=== PATIENT | male | born 1975 | race Caucasian/White ===

== ENCOUNTER 2016-08-28 15:17 | Emergency (ER) | payer OTHER ==
[~2016-08-28] VITALS: Ht 185.4 cm; Wt 93.5 kg
[~2016-08-28 15:17] MED LIST: GABA-112 PO; IBUP-103 PO; LORA-741 PO; OMEP20CA9 PO; PSEU30TA20 PO
[2016-08-28 15:25] VITALS: BP 163/84; PULSE 73; TEMP 36.7; O2SAT 100; Ht 185.4 cm; Wt 93.5 kg
[2016-08-28] MEDS ORDERED: DIPHTHERIA/TETANUS/PERTUSSIS 0.5 ML SYR/VIAL IM. ONE (15:45)
[2016-08-28] MEDS ORDERED: CEPHALEXIN MONOHYDRATE 250 MG CAP PO ONE (15:45)
[2016-08-28] MEDS ORDERED: CEPH500C PO (15:46)
--- NOTE | 2016-08-28 15:48 | EMERGENCY ROOM VISIT NOTE ---
ED Visit Note First contact with patient: 15:38 CHIEF COMPLAINT: Finger laceration HISTORY OF PRESENT ILLNESS: This 5-year-old male patient presents to the emergency department after cutting the right finger first finger about 2 hours ago. The patient was cutting a piece of sheet metal, when he accidentally cut the posterior proximal right thumb. The bleeding has has stopped. Denies weakness or numbness of the finger. The patient has full range of motion of the fingers. The patient rates the pain as sharp and 3/10. The patient denies any other injuries. The patient's tetanus shot is not up to date. The patient cleansed the wound at home and used commercial superglue over top of the wound. REVIEW OF SYSTEMS: A 6 system review of systems was completed with positives and pertinent negatives listed in the HPI. ALLERGIES: No known allergies MEDICATIONS: No chronic medications PMH: Otherwise healthy SOCIAL HISTORY: Lives locally PHYSICAL EXAM: Vital Signs: Reviewed Nurse's notes, vital signs stable. GENERAL : White male, in no acute distress, well developed, well nourished. SKIN: There is a 1.0 cm long laceration on the proximal dorsal aspect of the right first finger. The wound is covered by superglue and does not gape. There is no bleeding. Extension and flexion of the finger is full and strong. Full range of motion of the wrist and other fingers. Capillary refill less than 2 seconds. Normal sensation to light and sharp touch. EMERGENCY DEPARTMENT COURSE: Physical exam and history were performed. Nursing notes and EMR were reviewed. The patient appears to have suffered a small laceration to the back of his right thumb. On exam he has full sensation and range of motion of the digit. His wound appears clean and is well approximated and closed prior to my evaluation. I do not feel that additional suturing would improve the patient's outcome. He does need a tetanus, and this was updated. Additionally I will provide the patient a short course of Keflex to prevent secondary infection. The patient was pleased with this and voiced understanding. He rated his discomfort a 0/10 at the time of departure. Current/Historical Medications Scheduled Cephalexin Monohydrate (Keflex), 500 MG PO TID Omeprazole (Prilosec), 20 MG PO DAILY Scheduled PRN Ibuprofen Tab (Advil), 400 MG PO QID PRN for Pain Allergies Coded Allergies: No Known Allergies (Unverified , 10/12/15) Vital Signs Date Time Temp Pulse Resp B/P Pulse Ox O2 Delivery O2 Flow Rate FiO2 08/28/16 15:25 36.7 73 16 163/84 100 Room Air Departure Information Impression Primary Impression: Laceration of right thumb Dispostion Home / Self-Care Condition GOOD Prescriptions Cephalexin Monohydrate (Keflex) 500 Mg Cap 500 MG PO TID for 7 Days, #21 CAP Prov: Jaylon Lay PA-C 08/28/16 Forms HOME CARE DOCUMENTATION FORM, IMPORTANT VISIT INFORMATION Patient Instructions My [facility] Additional Instructions You were seen and evaluated today on an emergency basis only. This is not a substitute for, or an effort to provide, complete comprehensive medical care. It is not possible to recognize and treat all injuries or illnesses in a single emergency department visit. For this reason it is recommended that you followup with your primary care physician next week with any ongoing or persistent symptoms. Cephalexin(Keflex) 500mg: Take one pill 3 times daily for 7 days to prevent skin infection. All antibiotics can cause diarrhea. If this occurs and you feel worse or it does not resolve in 1-2 days follow up with your doctor or return to the Emergency Department as this could be signs of serious underlying problems. Any medication can cause an allergic reaction, stop the pills immediately and return to the ER for rash, hives, breathing difficulties, or swelling. You are welcome to return to the emergency department anytime with new, worsening, or concerning symptoms.
== END 2016-08-28 16:14 | disposition home or self-care (01) ==
LOC: C.EDB 15:19 → C.EDD 16:14
DX: S61.011A Laceration without foreign body of right thumb without damage to nail, initial encounter (principal); W45.8XXA Other foreign body or object entering through skin, initial encounter

== ENCOUNTER 2017-09-02 06:16 | Emergency (ER) | payer OTHER ==
[~2017-09-02] VITALS: Ht 185.4 cm; Wt 89.4 kg
[~2017-09-02 06:16] MED LIST changes: -GABA-112 PO; -LORA-741 PO; -PSEU30TA20 PO
[2017-09-02 06:18] VITALS: TEMP 36.4; Ht 185.4 cm; Wt 89.4 kg
[2017-09-02] MEDS ORDERED: KETOROLAC TROMETHAMINE 30 MG/ML VIAL IV STA (06:59)
[2017-09-02] MEDS ORDERED: ONDANSETRON INJ 2 MG/ML 2 ML VIAL IV STA (06:59)
[2017-09-02] MEDS ORDERED: SODIUM CHLORIDE 0.9% 1000ML 1,000 ML IV STA (06:59)
[2017-09-02] MEDS ORDERED: MoRPHine SULFATE 10 MG/ML CARP/VIAL IV PRN (07:00)
[2017-09-02 07:21] LABS: BASO % 0.5 %; BASO ABS # 0.04 K/uL (0-0.2); EOS % 0.9 %; EOS ABS # 0.07 K/uL (0-0.5); HEMATOCRIT 42.8 % (42-52); HEMOGLOBIN 15.4 g/dL (14.0-18.0); IG# 0.02 K/uL (0.00-0.02); LYMPH % 24.2 %; LYMPH ABS # 1.83 K/uL (1.2-3.4); MEAN CELL VOLUME 89.5 fL (80-100); MEAN CORPUSCULAR HEMOGLOBIN 32.2 pg (25-34); MEAN PLATELET VOLUME 9.5 fL (7.4-10.4); MONO % 7.1 %; MONO ABS # 0.54 K/uL (0.11-0.59); NEUT ABS # 5.06 K/uL (1.4-6.5); PLATELET COUNT 332 K/uL (130-400); RED CELL DISTRIBUTION WIDTH CV 13.1 % (11.5-14.5); RED CELL DISTRIBUTION WIDTH SD 42.6 fL (36.4-46.3); WHITE BLOOD COUNT 7.56 K/uL (4.8-10.8)
[2017-09-02 07:35] LABS: ALBUMIN 4.2 gm/dl (3.4-5.0); CREATININE 1.17 mg/dl (0.60-1.40); POTASSIUM 4.2 mmol/L (3.5-5.1)
--- NOTE | 2017-09-02 07:36 | DIAGNOSTIC IMAGING REPORT ---
ABD/PELVIS WITHOUT FOR STONE CT DOSE: 799.86 mGy.cm HISTORY: Flank pain left flank pain TECHNIQUE: Multiaxial CT images of the abdomen and pelvis were performed without the use of intravenous and oral contrast according to the standard department stone protocol. A dose lowering technique was utilized adhering to the principles of ALARA. COMPARISON STUDY: 10/12/2015 FINDINGS: 2 mm calculus left ureterovesical junction essentially unchanged from the prior study. Slight fullness left ureter and left renal collecting system compared to the right. No significant hydronephrosis. Liver spleen and pancreas are unremarkable. Bowel pattern is nonobstructive. Normal appendix. No significant free fluid in the pelvic cul-de-sac. IMPRESSION: 1. Minimally obstructing 2 mm calculus left ureterovesical junction. 2. Slight fullness left renal collecting system and left ureter. 3. This study is virtually identical to the prior study of 10/12/2015 The above report was generated using voice recognition software. It may contain grammatical, syntax or spelling errors. Electronically signed by: Ghassan Virk M.D. 09/02/2017 7:35 AM Dictated Date/Time: 09/02/2017 7:28 AM
[2017-09-02 07:37] LABS: TOTAL PROTEIN 7.5 gm/dl (6.4-8.2)
[2017-09-02] MEDS ORDERED: MoRPHine SULFATE 4 MG/ML 1 ML CARP\\VIAL IV STA (07:40)
[2017-09-02] MEDS ORDERED: HYDROmorphone INJ 0.5 MG/0.5 ML SYR IV STA (08:16)
--- NOTE | 2017-09-02 08:26 | EMERGENCY ROOM VISIT NOTE ---
History Report prepared by Nicole: Trupti Buckley Under the Supervision of: Dr. Luis Mendoza M.D. First contact with patient: 06:40 Chief Complaint: KIDNEY STONE Stated Complaint: KIDNEY STONE History of Present Illness The patient is a 42 year old male who presents to the Emergency Room with complaints of persistent left kidney pain starting 0400. He currently rates his discomfort as a 9.5/10 in severity. He states the pain feels like his previous kidney stone. His last kidney stone was 2 years ago and passed on its own. The pain radiates to his left testicle. He is nauseous. Pt denies LOC, headache, fevers, chills, diaphoresis, visual changes, neck pain, chest pain, breathing difficulties, vomiting, abdominal pain, melena, hematochezia, urinary symptoms, numbness, weakness, lymphadenopathy, rash, or other complaints. Source of History: patient Onset: 0400 Position: other (left kidney) Symptom Intensity: 9.5/10 Quality: other (kidney stone) Timing: other (persistent) Associated Symptoms: + nausea Note: Pt reports left testicle pain. Review of Systems See HPI for pertinent positives and negatives. A total of ten systems were reviewed and were otherwise negative. Past Medical & Surgical Medical Problems: (1) Kidney stones Family History Cancer Diabetes mellitus Heart disease Kidney stones Social History Smoking Status: Never Smoker Drug Use: none Marital Status: Housing Status: lives with family Occupation Status: employed Current/Historical Medications Scheduled Omeprazole (Prilosec), 20 MG PO DAILY Tamsulosin Hcl (Flomax), 0.4 MG PO DAILY Scheduled PRN Ibuprofen Tab (Advil), 400 MG PO QID PRN for Pain Oxycodone Ir (Roxicodone Ir), 1-2 TAB PO Q4H PRN for Pain Promethazine Hcl (Phenergan), 25 MG PO Q6H PRN for Nausea Allergies Coded Allergies: No Known Allergies (Unverified , 09/02/17) Physical Exam Vital Signs Date Time Temp Pulse Resp B/P (MAP) Pulse Ox O2 Delivery O2 Flow Rate FiO2 09/02/17 11:38 74 18 114/62 97 Room Air 09/02/17 10:26 50 16 135/74 99 Room Air 09/02/17 09:38 49 17 145/94 99 Room Air 09/02/17 08:00 45 09/02/17 07:41 43 17 138/88 99 Room Air 09/02/17 06:18 36.4 46 18 156/74 99 Room Air Physical Exam GENERAL: Awake, alert, uncomfortable-appearing, in mild distress HENT: Normocephalic, atraumatic. Oropharynx unremarkable. EYES: Normal conjunctiva. Sclera non-icteric. NECK: Supple. No nuchal rigidity. FROM. No masses. RESPIRATORY: Clear to auscultation. No wheezes. CARDIAC: Normal rate. Normal rhythm. No murmurs. No rubs. Extremities warm and well perfused. Pulses equal. No JVD. GI: Soft, non-distended. No tenderness to palpation. No rebound or guarding. No masses. RECTAL: Deferred. MUSCULOSKELETAL: Atraumatic. Chest examination reveals no tenderness. The back is symmetrical on inspection without obvious abnormality. There is left CVA tenderness to palpation. No joint edema. LOWER EXTREMITIES: Calves are equal size bilaterally and non-tender. No edema. No discoloration. NEURO: Normal sensorium. No sensory or motor deficits noted. SKIN: No rash or jaundice noted. Medical Decision & Procedures ER Provider Diagnostic Interpretation: Radiology results as stated below per my review and radiologist interpretation: ABD/PELVIS WITHOUT FOR STONE CT DOSE: 799.86 mGy.cm HISTORY: Flank pain left flank pain TECHNIQUE: Multiaxial CT images of the abdomen and pelvis were performed without the use of intravenous and oral contrast according to the standard department stone protocol. A dose lowering technique was utilized adhering to the principles of ALARA. COMPARISON STUDY: 10/12/2015 FINDINGS: 2 mm calculus left ureterovesical junction essentially unchanged from the prior study. Slight fullness left ureter and left renal collecting system compared to the right. No significant hydronephrosis. Liver spleen and pancreas are unremarkable. Bowel pattern is nonobstructive. Normal appendix. No significant free fluid in the pelvic cul-de-sac. IMPRESSION: 1. Minimally obstructing 2 mm calculus left ureterovesical junction. 2. Slight fullness left renal collecting system and left ureter. 3. This study is virtually identical to the prior study of 10/12/2015 The above report was generated using voice recognition software. It may contain grammatical, syntax or spelling errors. Electronically signed by: Ghassan Virk M.D. 09/02/2017 7:35 AM Dictated Date/Time: 09/02/2017 7:28 AM Laboratory Results 09/02/17 06:50 Red Blood Count 4.78, Mean Corpuscular Volume 89.5, Mean Corpuscular Hemoglobin 32.2, Mean Corpuscular Hemoglobin Concent 36.0, Mean Platelet Volume 9.5, Neutrophils (%) (Auto) 67.0, Lymphocytes (%) (Auto) 24.2, Monocytes (%) (Auto) 7.1, Eosinophils (%) (Auto) 0.9, Basophils (%) (Auto) 0.5, Neutrophils # (Auto) 5.06, Lymphocytes # (Auto) 1.83, Monocytes # (Auto) 0.54, Eosinophils # (Auto) 0.07, Basophils # (Auto) 0.04 09/02/17 06:50 Test 09/02/17 06:39 09/02/17 06:50 Urine Color DK YELLOW Urine Appearance TURBID (CLEAR) Urine pH 5.0 (4.5-7.5) Urine Specific [place] 1.033 (1.000-1.030) Urine Protein TRACE (NEG) Urine Glucose (UA) NEG (NEG) Urine Ketones NEG (NEG) Urine Occult Blood 3+ (NEG) Urine Nitrite NEG (NEG) Urine Bilirubin NEG (NEG) Urine Urobilinogen NEG (NEG) Urine Leukocyte Esterase NEG (NEG) Urine WBC (Auto) 1-5 /hpf (0-5) Urine RBC (Auto) >30 /hpf (0-4) Urine Hyaline Casts (Auto) 1-5 /lpf (0-5) Urine Epithelial Cells (Auto) 5-10 /lpf (0-5) Urine Bacteria (Auto) NEG (NEG) White Blood Count 7.56 K/uL (4.8-10.8) Red Blood Count 4.78 M/uL (4.7-6.1) Hemoglobin 15.4 g/dL (14.0-18.0) Hematocrit 42.8 % (42-52) Mean Corpuscular Volume 89.5 fL (80-100) Mean Corpuscular Hemoglobin 32.2 pg (25-34) Mean Corpuscular Hemoglobin Concent 36.0 g/dl (32-36) Platelet Count 332 K/uL (130-400) Mean Platelet Volume 9.5 fL (7.4-10.4) Neutrophils (%) (Auto) 67.0 % Lymphocytes (%) (Auto) 24.2 % Monocytes (%) (Auto) 7.1 % Eosinophils (%) (Auto) 0.9 % Basophils (%) (Auto) 0.5 % Neutrophils # (Auto) 5.06 K/uL (1.4-6.5) Lymphocytes # (Auto) 1.83 K/uL (1.2-3.4) Monocytes # (Auto) 0.54 K/uL (0.11-0.59) Eosinophils # (Auto) 0.07 K/uL (0-0.5) Basophils # (Auto) 0.04 K/uL (0-0.2) RDW Standard Deviation 42.6 fL (36.4-46.3) RDW Coefficient of Variation 13.1 % (11.5-14.5) Immature Granulocyte % (Auto) 0.3 % Immature Granulocyte # (Auto) 0.02 K/uL (0.00-0.02) Anion Gap 8.0 mmol/L (3-11) Est Creatinine Clear Calc Drug Dose 93.9 ml/min Estimated GFR () 89.2 Estimated GFR (Non- 77.0 BUN/Creatinine Ratio 16.3 (10-20) Calcium Level 9.0 mg/dl (8.5-10.1) Total Bilirubin 1.0 mg/dl (0.2-1) Direct Bilirubin 0.2 mg/dl (0-0.2) Aspartate Amino Transf (AST/SGOT) 15 U/L (15-37) Alanine Aminotransferase (ALT/SGPT) 25 U/L (12-78) Alkaline Phosphatase 117 U/L (45-117) Total Protein 7.5 gm/dl (6.4-8.2) Albumin 4.2 gm/dl (3.4-5.0) Lipase 254 U/L (73-393) Laboratory results reviewed by me Medications Administered Medications (Trade) Dose Ordered Sig/[place] Route Start Time Stop Time Status Last Admin Dose Admin Ondansetron HCl (Zofran Inj) 4 mg NOW STAT IV 09/02/17 06:59 09/02/17 07:02 DC 09/02/17 07:10 4 MG Sodium Chloride 1,000 ml @ 999 mls/hr Q1H1M STAT IV 09/02/17 06:59 09/02/17 07:59 DC 09/02/17 07:12 999 MLS/HR Morphine Sulfate (MoRPHine SULFATE INJ) 8 mg Q20M PRN IV 09/02/17 07:00 09/02/17 12:05 DC 09/02/17 07:10 8 MG Ketorolac Tromethamine (Toradol Inj) 15 mg NOW STAT IV 09/02/17 06:59 09/02/17 07:02 DC 09/02/17 07:12 15 MG Morphine Sulfate (MoRPHine SULFATE INJ) 4 mg NOW STAT IV 09/02/17 07:40 09/02/17 07:41 DC 09/02/17 07:45 4 MG Hydromorphone HCl (Dilaudid Inj) 0.5 mg NOW STAT IV 09/02/17 08:16 09/02/17 08:17 DC 09/02/17 08:21 0.5 MG Hydromorphone HCl (Dilaudid Inj) 1 mg Q15M PRN IV 09/02/17 10:15 09/02/17 12:05 DC 09/02/17 10:27 1 MG ED Course 0658: The patient was evaluated in room A2. A complete history and physical exam was performed. 0659: Toradol Inj 15 mg IV, NSS 1000 ml @ 999 mls/hr IV, Zofran Inj 4 mg IV. 0700: Morphine Sulfate 8 mg IV. 0739: I reevaluated the patient. He is still having pain. 0740: Morphine Sulfate 4 mg IV. 0816: Dilaudid Inj 0.5 mg IV. 1004: The patient is still complaining of pain. 1015: Dilaudid Inj 1 mg IV. 1032: Upon reexamination, the patient was still having pain. I discussed the test results and treatment plan with him. The patient will be evaluated for further management. 1036: I [facility] the patient's case [facility] The patient will be evaluated for further treatment and disposition. 1054: Ada has evaluated the patient and he would now like to go home. 1119: I reevaluated the patient. Discussed results and discharge instructions: He verbalized understanding and agreement. The patient is ready for discharge. Medical Decision Prior records/ancillary studies reviewed. The patient had a visit in 2016 for kidney stones. Triage Nursing notes reviewed and agree them. Additional history obtained from the family. The patient's history was concerning for flank and abdominal pain. Differential diagnosis: Etiologies such as renal colic, appendicitis, diverticulitis, mesenteric ischemia, aortic pathology, infections, inflammatory bowel disease, PUD, biliary pathology, UTI, as well as others were entertained. Physical examination findings: As above. ER treatment provided: IV normal saline IV Zofran IV morphine 8 mg, morphine 4 mg IV Toradol 15 mg On reassessment the patient was still having discomfort IV Dilaudid 0.5 mg On reassessment the patient felt better. Diagnostic interpretation by me: The labs revealed an unremarkable CBC and chemistry panel. Urinalysis revealed hematuria. There was no sign of UTI. Imaging studies: CT of the abdomen and pelvis as above. It appears that the patient has isolated renal colic from a left sided stone. The patient was having more pain and the additional pain medication helped. Consultation was made with the hospitalist service. The time they evaluated the patient he was feeling better and did not want to stay in the hospital. He asked for medication for use as an outpatient with clinic follow-up. This is felt to be reasonable. The patient was given a prescription for Flomax, Phenergan, and oxycodone. If he worsens in any way he will be back.I gave my usual and customary discussion regarding this issue. By the evaluation outlined above other emergent etiologies such as those listed in the differential, as well as others, were deemed relatively unlikely. The patient was educated about the findings as listed above. All questions were answered and the patient was pleased with the treatment. Return instructions were outlined and the patient was discharged in stable condition. The patient was referred to Urology for follow-up for a recheck of the current condition. Medication Reconcilliation Current Medication List: was personally reviewed by me Blood Pressure Screening Patient's blood pressure: Elevated blood pressure Blood pressure disposition: Elevated BP felt to be situational Consults Time Called: 1028 Consulting Physician: Ada Smith PA-C [facility] hospitalist Returned Call: [phone] Discussed the patient's case. The patient will be evaluated for further treatment and disposition. Impression Primary Impression: Renal colic Additional Impression: Left ureteral calculus Scribe Attestation The scribe's documentation has been prepared under my direction and personally reviewed by me in its entirety. I confirm that the note above accurately reflects all work, treatment, procedures, and medical decision making performed by me. Departure Information Dispostion Home / Self-Care Prescriptions Promethazine Hcl (Phenergan) 25 Mg Tab 25 MG PO Q6H Y for Nausea, #10 TAB Prov: Luis Mendoza MD 09/02/17 Tamsulosin Hcl (FLOMAX) 0.4 Mg Cap 0.4 MG PO DAILY, #10 CAP Prov: Luis Mendoza MD 09/02/17 Oxycodone Ir (Roxicodone Ir) 5 Mg Tab 1-2 TAB PO Q4H Y for Pain, #15 TAB Prov: Luis Mendoza MD 09/02/17 Referrals Shaka Dixon D.O. (PCP) Forms HOME CARE DOCUMENTATION FORM, IMPORTANT VISIT INFORMATION Patient Instructions My [facility] Additional Instructions KIDNEY STONE INSTRUCTIONS: Oxycodone Immediate Release (OxyIR) 5mg: Take 1-2 pills every four hours for pain. Avoid alcohol, operating machinery or dangerous equipment, working on ladders or roofs, DRIVING, or situations where being under the influence may be dangerous. It is recommended to use an ewak-jvm-[id number] stool softener such as Colace, 100mg twice daily while taking this medication to avoid constipation. Phenergan 25mg: Take one every six hours as needed for nausea. Avoid alcohol, operating machinery or dangerous equipment, working on ladders or roofs, DRIVING , or situations where being under the influence may be dangerous. Ibuprofen(Motrin, Advil) may be used for fever or pain. Use 600mg every six hours as needed. Take with food. Avoid using more than 2400mg in a 24 hour period. Do not use 2400mg per day for more than three consecutive days without physician direction. Prolonged inappropriate use can lead to stomach upset or ulcers. This medication can be taken if you need to drive, work, or perform activities which may be dangerous when taking narcotic pain medication. (AND/OR) Acetaminophen(Tylenol) may be used for fever or pain. Use 1000mg every six hours as needed. Avoid using more than 4000mg in a 24 hour period. This medication can be taken if you need to drive, work, or perform activities which may be dangerous when taking narcotic pain medication. Strain your urine and collect all the stones or debris for the urologists. Rest and avoid strenuous activity until your stone passes and symptoms resolve. Drink plenty of fluids. Return to the ER for worsening abdominal or back pain, vomiting, fevers, passing out, or as needed. Follow up with [facility], call [phone], to arrange a visit. Problem Qualifiers
[2017-09-02] MEDS ORDERED: HYDROmorphone INJ 1 MG/ML SYR IV PRN (10:15)
[2017-09-02] MEDS ORDERED: OXYC1TAB3 PO (11:34)
[2017-09-02] MEDS ORDERED: TAMS0.4C38 PO (11:34)
[2017-09-02] MEDS ORDERED: PROM25TA9 PO (11:34)
[2017-09-02 11:38] VITALS: BP 114/62; PULSE 74; O2SAT 97
--- NOTE | 2017-09-21 08:30 | Medical Consult ---
Consultation Date of Consultation: Sep 21, 2017. Attending Physician: Reason for Consultation: Hospitalist evaluation - Possible Admission History of Present Illness Pt is 42 y/o M who presented to ER with c/o L flank pain with radiation to L groin that started this morning. Also c/o nausea. Hx kidney stones in past that pt reports has been able to pass on his own and this feels similar. Denies fever /chills, diaphoresis, V/D/C, HASSAN, dizziness, syncope, vision changes, neck pain, CP, SOB, orthopnea, palpitations, cough, sore throat, choking, otalgia, rhinorrhea, paresthesias, weakness, extremity weakness, extremity edema, rashes , dysuria, hematuria, urinary frequency, urinary retention. Past Medical/Surgical History Medical Problems: (1) Laceration of right thumb Status: Acute (2) Left ureteral calculus Status: Acute (3) Renal colic Status: Acute (4) Renal colic on left side Status: Acute Family History Cancer Diabetes mellitus Heart disease Kidney stones Social History Smoking Status: Never Smoker Drug Use: none Marital Status: Housing Status: lives with family Occupation Status: employed Allergies Coded Allergies: No Known Allergies (Unverified , 09/02/17) Review of Systems See HPI for pertinent positives & negatives. All other systems reviewed and were otherwise negative Physical Exam General Appearance: WD/WN, no apparent distress (pt sitting up in chair) Head: normocephalic, atraumatic Eyes: normal inspection, sclerae normal ENT: hearing grossly normal, pharynx normal, + pertinent finding (mucous membranes moist) Neck: supple, trachea midline Respiratory/Chest: lungs clear, normal breath sounds, no respiratory distress Cardiovascular: regular rate, rhythm, no murmur Abdomen/GI: normal bowel sounds, soft, + pertinent finding (+mild tenderness to palpation L CVA, no other abdominal tenderness noted) Back: normal inspection Extremities/Musculoskelatal: normal inspection, normal range of motion Neurologic/Psych: alert, normal mood/affect, oriented x 3 Skin: normal color, warm/dry Laboratory Results CT ABD/PELVIS: IMPRESSION: 1. Minimally obstructing 2 mm calculus left ureterovesical junction. 2. Slight fullness left renal collecting system and left ureter. 3. This study is virtually identical to the prior study of 10/12/2015 Lab data reviewed Assessment & Plan RENAL COLIC Pt with 2mm stone L UVJ, Labs WNL, U/A: +blood. Upon my evaluation pt reports pain is controlled, he appears in no apparent distress. Pt wishes to go home at this this time and try out pt trial, with understanding to return if worsening symptoms. Discussed with ER physician and ER physician will discharge pt home. Disposition Discharge home ATTENDING ADDENDUM : in agreement with the assessment by Ada Cortes PA-C 42 YO M with non obstructive L renal stone at L UVJ -expected to pass spontaneously at present pain free , no discomfort, no sign of infection stable to be discharged home form ER Alexus Gurrola MD
== END 2017-09-02 11:47 | disposition home or self-care (01) ==
LOC: C.EDB 06:18 → C.EDA 11:47
DX: N20.1 Calculus of ureter (principal); Z87.442 Personal history of urinary calculi; Z83.3 Family history of diabetes mellitus; Z82.49 Family history of ischemic heart disease and other diseases of the circulatory system; Z84.1 Family history of disorders of kidney and ureter